=== PATIENT | female | born 1980 ===

== ENCOUNTER 2020-08-02 11:35 | Emergency (ER) | payer BC | END 2020-08-02 12:56 | disposition left against medical advice (07) | LOC: MW.ED 11:35 | DX: Z53.21 Procedure and treatment not carried out due to patient leaving prior to being seen by health care provider (principal) ==

== ENCOUNTER 2021-08-11 19:03 | Emergency (ER) | payer BC, OTHER | END 2021-08-11 20:22 | disposition left against medical advice (07) | LOC: MW.ED 19:03 | DX: Z53.21 Procedure and treatment not carried out due to patient leaving prior to being seen by health care provider (principal) ==

== ENCOUNTER 2021-09-02 03:35 | Emergency (ER) | payer OTHER ==
[2021-09-02] MEDS ORDERED: Aspirin 81 MG Tab.Chew PO ONE (03:58)
[2021-09-02] MEDS ORDERED: Famotidine 20 MG Tab PO ONE (04:16)
[2021-09-02] MEDS ORDERED: Alum Hydro/Mag Hydro/Simeth XS 15 ML, Lidocaine 2% 5 ML PO ONE ×2 (04:16)
[2021-09-02 04:37] LABS: BLOOD UREA NITROGEN,BUN 9 mg/dL (7.0-18.0); CARBON DIOXIDE,CO2 26.2 mmol/L (21.0-32.0); CHLORIDE,CL 105 mmol/L (98-107); GLUCOSE RANDOM 102 mg/dL (74-106); POTASSIUM,K 3.6 mmol/L (3.5-5.1); SODIUM,NA 140 mmol/L (136-145)
[2021-09-02 04:40] LABS: ESTIMATED GFR 95 mL/min (>60)
== END 2021-09-02 05:25 | disposition home or self-care (01) ==
LOC: MW.ED 03:35
DX: R07.89 Other chest pain (principal); R10.9 Unspecified abdominal pain; Z20.822 Contact with and (suspected) exposure to COVID-19
CPT/HCPCS: 36415; 71045; 80048; 83735; 84484; 85025; 87635; 93005; 99285; A9270; U0002

== ENCOUNTER 2024-05-21 14:48 | Emergency (ER) | payer OTHER ==
[2024-05-21] MEDS ORDERED: Sodium Chloride 0.9% 10 ML Syringe FLUSH PRN (16:12)
[2024-05-21] MEDS ORDERED: Sodium Chloride 0.9% 20 ML SDV IV PRN (16:12)
[2024-05-21] MEDS ORDERED: Sodium Chloride 0.9% 2.5 ML Syringe FLUSH PRN (16:12)
[2024-05-21] MEDS: Aspirin 81 MG Tab.Chew PO ONE (16:21)
[2024-05-21 16:41] LABS: BASOPHILS ABSOLUTE AUTO 0.06 K/uL (0.00-0.20); BASOPHILS PERCENT AUTO 0.8 % (0.0-1.0); EOSINOPHILS ABSOLUTE AUTO 0.08 K/uL (0.00-0.45); EOSINOPHILS PERCENT AUTO 1.1 % (0.0-6.0); HEMATOCRIT 39.4 % (37.0-47.0); HEMOGLOBIN 13.9 g/dL (12.0-16.0); IMMATURE GRAN ABSOLUTE AUTO 0.02 K/uL (0.00-0.05); IMMATURE GRAN PERCENT AUTO 0.3 % (0.0-0.4); LYMPHOCYTES ABSOLUTE AUTO 1.59 K/uL (1.00-4.80); LYMPHOCYTES PERCENT AUTO 22.1 % (24.0-44.0); MEAN CORPUSCULAR HEMOGLOBIN 34.5 pg (28.0-32.0); MEAN CORPUSCULAR HGB CONC 35.3 g/dL (32.0-36.0); MEAN CORPUSCULAR VOLUME 97.8 fL (83.0-99.0); MEAN PLATELET VOLUME 9.3 fL (9.4-12.3); MONOCYTES ABSOLUTE AUTO 0.38 K/uL (0.00-0.80); MONOCYTES PERCENT AUTO 5.3 % (0.0-8.0); NEUTROPHILS ABSOLUTE AUTO 5.07 K/uL (1.80-7.70); NEUTROPHILS PERCENT AUTO 70.4 % (41.0-71.0); PLATELET COUNT,PLT 270 K/uL (150-400); RED BLOOD CELL COUNT 4.03 M/uL (4.10-5.30)
[2024-05-21 17:14] LABS: A/G RATIO 1.3 (0.9-1.6); ALANINE AMINOTRANSFERASE,ALT 15 IU/L (14-63); ALBUMIN 4.1 g/dL (3.4-5.0); ALKALINE PHOSPHATASE 61 U/L (46-116); ASPARTATE AMNIOTRANSFERASE,AST 6 IU/L (15-37); BILIRUBIN TOTAL 0.4 mg/dL (0.2-1.0); BLOOD UREA NITROGEN,BUN 8 mg/dL (7.0-18.0); CALCIUM 8.6 mg/dL (8.5-10.1); CARBON DIOXIDE,CO2 24.4 mmol/L (21.0-32.0); CHLORIDE,CL 104 mmol/L (98-107); CREATININE 0.7 mg/dL (0.6-1.0); EST CRCL DRUG DOSING (CG) 85.72 mL/min; GLUCOSE RANDOM 90 mg/dL (74-106); LIPASE 38 U/L (16-77); MAGNESIUM 2.2 mg/dL (1.8-2.4); POTASSIUM,K 3.5 mmol/L (3.5-5.1); PROTEIN TOTAL,TP 7.2 g/dL (6.4-8.2); SODIUM,NA 141 mmol/L (136-145)
[2024-05-21 17:15] LABS: ESTIMATED GFR 110 mL/min (>60)
== END 2024-05-21 20:23 | disposition home or self-care (01) ==
LOC: MW.ED 14:48
DX: R07.89 Other chest pain (principal); Z79.899 Other long term (current) drug therapy; Z87.891 Personal history of nicotine dependence
CPT/HCPCS: 36415; 71046; 80053; 83690; 83735; 84484; 84703; 85025; 85379; 87428; 93005; 99285; A9270; 99283